=== PATIENT | male | born 1995 | race Caucasian/White ===

== ENCOUNTER 2018-06-02 12:08 | Emergency (ER) | payer MEDICAID, SELFPAY ==
[2018-06-02 12:09] VITALS: BP 122/73; PULSE 92; RESP 22; TEMP 36.3; O2SAT 98; BMI 18.8
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
[2018-06-02] MEDS: Acetaminophen 500 MG Tablet 1000 MG PO (13:55)
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
[2018-06-02 15:50] VITALS: PULSE 95; RESP 16; O2SAT 98
== END 2018-06-02 15:51 | disposition home or self-care (01) ==
LOC: ED 14:40
PROVIDERS: Emergency Provider Emergency Medicine
DX: S39.012A Strain of muscle, fascia and tendon of lower back, initial encounter (principal); S80.12XA Contusion of left lower leg, initial encounter; V13.4XXA Pedal cycle driver injured in collision with car, pick-up truck or van in traffic accident, initial encounter; Y93.9 Activity, unspecified; Y92.488 Other paved roadways as the place of occurrence of the external cause; Y99.9 Unspecified external cause status; Z72.0 Tobacco use; H54.8 Legal blindness, as defined in USA
CPT/HCPCS: 70450; 72100; 72125; 73590; 90715; 99283

== ENCOUNTER 2019-09-24 12:38 | Emergency (ER) | payer MEDICAID, SELFPAY ==
[2019-09-24 12:39] VITALS: BP 102/69; PULSE 70; RESP 18; TEMP 36.8; O2SAT 98; BMI 19.3
--- NOTE | 2019-09-24 13:34 | ED.VIS.DENTA ---
History of Present Illness Chief Complaint: Dental Informant: Patient Onset: Yesterday Context: Sudden Onset Timing: Continuous Quality: Pain Location: Right lower jaw Current Severity: Mild Maximum Severity: Severe Worsened by: Cold liquids or hot liquids Associated Symptoms: Hot, Cold, Sensitivity Narrative: Patient is a 23-year-old male presented abrupt onset of right lower jaw pain. He believes he has an impacted wisdom tooth. States the pain is worse with cold or hot foods. He denies fever, chills night sweats. Nuys history medic fever, murmur, SBE, IV drug use or being immune suppressed. He denies difficulty opening closing his mouth. Nuys trouble swallowing or breathing. He has not not noted a change in his voice. He has not noted a rash. He denies facial swelling. Prior similar symptoms: No Recent Illness/Hospitalization: No - Past Medical History (1) No significant past medical history Status: Acute Past Medical History - Allergies and Home Meds Allergies/Adverse Reactions: Allergies naproxen [From Naprosyn] Allergy (Verified 09/24/19 12:40) Hives Penicillins Allergy (Verified 09/24/19 12:40) Rash Primary Care Physician: Care Physician,No Primary [Primary Care Provider] - Prior records reviewed: No Past Medical History: None Surgical History: no surgical history Lives: Alone Smoking Status: Current every day smoker Alcohol: Rare Drugs: None Review of Systems General: Denies: Chills, Fever, Malaise, Sweats Eyes: Denies: Visual changes - bilaterally, Blurred Vision - bilaterally, Diplopia ENT: Reports: - - Dental pain right lower jaw. Denies: Bilateral ear pain, Rhinorrhea, Sore throat Cardiovascular: Denies: Chest pain, Palpitations Respiratory: Denies: Dyspnea, Cough, Dyspnea on exertion Musculoskeletal: Denies: Myalgias, Arthralgias, Neck pain, Back pain, Swelling, Extremity Pain, -, - Hematologic: Denies: Easy bruising, Easy bleeding Allergy: Denies: Uticaria, Swelling of the mouth, Swelling of the tongue Physical Exam Vital Signs/Narrative: Vital Signs Temp Pulse Resp BP Pulse Ox 09/24/19 12:39 98.3 F 70 18 102/69 98 Inital Vital Signs reviewed: Yes General: Well nourished, Well developed Head: Normocephalic, Atraumatic ENT: Moist mucous membranes, No rhinorrhea, TM's clear. Negative for: Nasal congestion, Sinus tenderness Mouth/Throat: Normal oral mucosa, Normal posterior oropharynx, No sublingual edema, Normal Stensen's duct, Focal gum swelling, - - Swelling of the gum noted by the right second molar. There is slight erythema and swelling consistent with pericoronitis. There is no fluctuance. There is no trismus. There is no pain to palpation the floor of the mouth. The trachea is midline. There is no stridor.. Negative for: Normal inspection lips/gums, No dental tenderness, Apthous ulcer, Dental trauma, Dental abscess, Dental avulsion, Dentral fracture, Filling loss, Focal dental decay Neck: Supple, No lymphadenopathy, Nontender, No JVD. Negative for: Anterior submandibular lymphadenopathy, Posterior submandibular lymphadenopathy, Anterior submental lymphadenopathy, Posterior submental lymphadenopathy, Soft tissue swelling, Submandibular soft tissue swelling, Submental soft tissue swelling, Parotid tenderness Cardiovascular: Regular rate, Regular rhythm, No murmurs, Normal S1, Normal S2 Respiratory: No distress, CTA bilaterally, Chest nontender Skin: Normal color, No rash Neurological: Alert, Oriented x3, Cranial nerves II-XII grossly intact, Normal Strength, Normal Sensation Psychological: Normal affect Diagnostic/Tx/Re-eval - Medical Decision Making She has dental pain. Based on physical exam he has pericoronitis. Will treat with antibiotics and anti-inflammatory since there is no contraindication. ED Disposition - Plan for ED Patient: Disposition: Home or Assisted Living Diagnosis: Acute pericoronitis Instructions: Dental Pain Prescriptions: Hydrocodone Bitart/Apap 5-325 [Stanford 5MG-325MG] 1 tab PO Q6H PRN PRN 3 Days #10 tab PRN Reason: Pain Prescription Printed Azithromycin [Zithromax Z-Blane] 250 mg PO UD #1 box Prescription Printed Referrals: Care Physician,No Primary [Primary Care Provider] - Dentist,Your [STAFF PHYSICIAN] - 1-2 Weeks
[2019-09-24] MEDS: Azithromycin 250 MG Tablet 500 MG PO (13:51)
[2019-09-24] MEDS: HYDROcodone Bitartrate/Apap 5/325 Tablet PO (13:51)
== END 2019-09-24 14:03 | disposition home or self-care (01) ==
PROVIDERS: Emergency Provider Emergency Medicine
DX: K08.89 Other specified disorders of teeth and supporting structures (principal); K05.20 Aggressive periodontitis, unspecified; F17.200 Nicotine dependence, unspecified, uncomplicated; Z88.0 Allergy status to penicillin; Z88.6 Allergy status to analgesic agent
CPT/HCPCS: 99283

== ENCOUNTER 2020-06-30 13:30 | Emergency (ER) | payer MEDICAID, SELFPAY ==
[2020-06-30 13:31] VITALS: BP 149/71; PULSE 87; RESP 16; TEMP 36.4; O2SAT 100; BMI 17.8
[2020-06-30 14:21] VITALS: BP 149/71; PULSE 87; RESP 16; TEMP 36.4; O2SAT 100
--- NOTE | 2020-06-30 15:03 | ED.VISSUMM ---
- ER Visit Summary Date of Service: 06/30/20 Chief Complaint: Dental pain History of Present Illness: The patient is a 24 M who presents with dental pain that has been getting worse over the past 3 days. Patient states he does not have a dentist or primary care physician. Patient admits to cold sensitivity. Patient states the pain is worse with chewing. Patient describes the pain as aching, throbbing, sharp, and pressure. Patient denies any fevers or chills. Physical Examination: Vital signs are stable. Patient is afebrile. Patient is in no acute distress. Oropharynx is clear. There are no exudates. There are dental caries noted over the left lower 2nd and 3rd molars. There is some gingival edema around these teeth. There is no fluctuance or abscess formation. There is no sublingual edema or erythema. There is no evidence of Isaiah's angina. Neck is supple. There is no JVD or lymphadenopathy. Emergency Department Course and Treatment: Patient was given prescriptions for Dolobid and clindamycin. Patient was referred to the [facility] for dental care and primary care. Patient was instructed to return is worse in any way. Patient understood and was agreeable with the plan. All questions were answered. Disposition: Discharge home Impression: Infected dental caries This note was generated with [employer] dictation software. It may contain incorrect words, spelling, and punctuation that were not noted in review of the chart prior to signing ED Disposition - Plan for ED Patient: Disposition: Home or Assisted Living Diagnosis: Infected dental caries Instructions: ED CAVITY Dental Prescriptions: Clindamycin HCl [Cleocin] 300 mg PO Q6H #40 cap Prescription Printed Diflunisal [Dolobid] 500 mg PO BID PRN #20 tab PRN Reason: Pain Score 1-10 Prescription Printed Referrals: [facility] [NON-STAFF] - 3-5 Days
[2020-06-30 15:04] VITALS: BP 147/91; PULSE 87; RESP 14; TEMP 36.4; O2SAT 100
[2020-06-30 15:26] VITALS: PULSE 85; RESP 15; O2SAT 99
== END 2020-06-30 15:26 | disposition home or self-care (01) ==
PROVIDERS: Emergency Provider Emergency Medicine
DX: K02.9 Dental caries, unspecified (principal); K04.7 Periapical abscess without sinus; F17.200 Nicotine dependence, unspecified, uncomplicated
CPT/HCPCS: 99282

== ENCOUNTER 2023-10-16 19:41 | Emergency (ER) | payer MEDICAID, SELFPAY ==
[2023-10-16 19:42] VITALS: BP 103/78; PULSE 93; RESP 20; TEMP 37; O2SAT 96; BMI 17.4
--- NOTE | 2023-10-16 20:50 | RAD_ITS ---
STUDY: X-RAY - LEFT WRIST REASON FOR EXAM: Male, 27 years old. pain TECHNIQUE: 3 view(s) of the wrist were obtained. COMPARISON: None. FINDINGS: Normal visualized distal radius and ulna. Normal radiocarpal articulation. Normal distal radioulnar articulation. Normal carpal bones. Normal carpal articulations. Normal carpometacarpal articulation of the thumb. Normal second through fifth carpometacarpal articulations. Normal visualized metacarpal bones. The soft tissue structures are unremarkable. RAD/Wrist min 3 Views IMPRESSION: Normal x-ray examination of the wrist. Electronically Signed: Deni Motley MD at 21:42 EST ,
--- OUTSIDE RECORDS SUMMARY | 2023-10-16 23:03 | XMS RPT_ITS | CCD ---
Author Name Unknown Address [address] [place] [address] Organization [facility] Results Test Name Value Interpretation Reference Range Facil ity Summary Purpose Family History No Family History Records Found Advance Directives No Advanced Directives Records Found Additional Source Comments (unrecognized sect ion and content) No Status Records Found INFORMATION SOURCE (unrecogn ized section and content) FOR RECORDS PERTAINING TO PATIENTS WHO ARE OR HAVE BEEN ENROLLED IN A CHEMICAL DEPENDENCY/SUBSTANCEABUSE PROGRAM, SOME INFORMATION MAY BE OMITTED. This clinical summary was aggregated from multiple sources. Caution should be exercised in using it in the provision of clinical care. This summary normalizes information from multiple sources, and as a consequence, information in this document may materially change the coding, format and clinical context of patient data. In addition, data may be omitted in some cases. CLINICAL DECISIONS SHOULD BE BASED ON THE PRIMARY CLINICAL RECORDS. [facility]. provides no warranty or guarantee of the accuracy or completeness of information in this document.
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
[2023-10-16] MEDS: HYDROcodone Bitartrate/Apap 5/325 Tablet PO (23:21)
== END 2023-10-16 23:35 | disposition home or self-care (01) ==
PROVIDERS: Emergency Provider Emergency Medicine; Visit Provider Emergency Medicine
DX: S69.92XA Unspecified injury of left wrist, hand and finger(s), initial encounter (principal); F17.210 Nicotine dependence, cigarettes, uncomplicated; V89.0XXA Person injured in unspecified motor-vehicle accident, nontraffic, initial encounter
CPT/HCPCS: 73110; 99283